=== PATIENT | male | born 1995 | race Caucasian/White ===

== ENCOUNTER 2018-07-23 13:25 | Emergency (ER) | payer SELFPAY ==
[~2018-07-23] VITALS: Ht 177.8 cm; Wt 68.0 kg
--- NOTE | 2018-07-23 14:00 | Emergency Room Report ---
History of Present Illness General Chief Complaint: Earache Source: Patient Present Illness HPI 22-year-old male with no significant past medical history here complaining of 2 days of right ear pain. Patient reports that he tried to get the ear wax out of his ear and putting a lot of fluid in his ear. Discharge from his ear, fever , chills, and all other URI symptoms. Patient denies neck pain and pain over the mastoid process process. Patient is rating the pain intermittent and 4 out of 10 and has not taken any medication for pain. Denies numbness or tingling in his right side effects. Allergies: Coded Allergies: No Known Allergies (Unverified , 07/23/18) Patient History Past Surgical History: unable to obtain Pertinent Family History: none Immunizations: UTD Reviewed Nursing Documentation: PMH: Agreed; PSxH: Agreed Nursing Documentation-PMH Past Medical History: No Stated History Review of Systems All Other Systems: negative except mentioned in HPI Physical Exam Vital Signs Date Time Temp Pulse Resp B/P (MAP) Pulse Ox O2 Delivery O2 Flow Rate FiO2 07/23/18 13:44 98.2 71 17 118/76 99 Room Air Sp02 EP Interpretation: reviewed, normal General Appearance: normal inspection, well appearing, no apparent distress Head: normocephalic, atraumatic Eyes: bilateral eye normal inspection, bilateral eye PERRL ENT: hearing grossly normal, normal pharynx, no angioedema, other - Pierz impaction in right ear canal, mild erythema of external ear canal on the right ear right TM not visible no pain or pressure by palpation of tragus or pinna Neck: normal inspection, full range of motion, supple Respiratory: normal inspection, lungs clear, no rhonchi, no wheezing Gastrointestinal: normal inspection, non tender Neurologic: normal inspection, alert, oriented x3 Psychiatric: normal inspection, judgement/insight normal Skin: normal inspection, normal color, no rash, normal turgor Lymphatic: normal inspection, no adenopathy, axilla node tender (R) Medical Decision Making PA Attestation all diagnosis and treatment plans are reviewed and discussed my supervising physician Dr. Wharton Diagnostic Impression: Primary Impression: Otitis media Additional Impression: Cerumen impaction ER Course 22-year-old male with no significant past medical history here complaining of 2 days of right ear pain. Patient reports that he tried to get the ear wax out of his ear and putting a lot of fluid in his ear. Discharge from his ear, fever , chills, and all other URI symptoms. Patient denies neck pain and pain over the mastoid process process. Patient is rating the pain intermittent and 4 out of 10 and has not taken any medication for pain. Denies numbness or tingling in his right side effects. Ddx considered but are not limited to otitis media , otitis externa, cerumen impaction, mastoiditis Vital signs: are WNL, pt. is afebrile H&PE are most consistent with [place] media ORDERS: Augmentin, naproxen ED INTERVENTIONS: None required at this time. DISCHARGE: At this time pt. is stable for d/c to home. Will provide printed patient care instructions, and any necessary prescriptions. Care plan and follow up instructions have been discussed with the patient prior to discharge. Last Vital Signs Date Time Temp Pulse Resp B/P (MAP) Pulse Ox O2 Delivery O2 Flow Rate FiO2 07/23/18 13:44 98.2 71 17 118/76 99 Room Air Disposition: HOME, SELF-CARE Condition: Stable Scripts Ibuprofen* (MOTRIN*) 600 Mg Tablet 600 MG ORAL BID, #20 TAB 0 Refills Prov: Bang Escobar 07/23/18 Amoxicillin/Potassium Clav 875-125* (AUGMENTIN 875-125 TABLET*) 1 Each Tablet 1 TAB ORAL TWICE A DAY for 10 Days, #20 TAB Prov: Bang Escobar 07/23/18 Patient Instructions: Cerumen Impaction, Otitis Media, Adult Additional Instructions: is medication as directed, avoid using Q-tip to clean the ER as he may push that back surgery pain and exacerbated infection. Once infection has been resolved C either ear nose throat doctor or go to an urgent care for proper ear lavage. Bang Escobar Jul 23, 2018 14:00
[2018-07-23] MEDS ORDERED: IBUPROFEN600 MG ORAL (14:01)
[2018-07-23] MEDS ORDERED: AUGMENTIN 875-1 EAC1 ORAL (14:01)
[2018-07-23 14:02] VITALS: BP 118/76
--- NOTE | 2018-07-23 14:02 | NUR ---
ED Nurse Note:pt. came with c/o right earache for several days
[2018-07-23 14:07] VITALS: BP 118/76
--- NOTE | 2018-07-23 14:08 | NUR ---
ED Nurse Note:pt. recevied d/c instructions with prescriptions and left ER with steady gait
== END 2018-07-23 14:21 | disposition home or self-care (01) ==
LOC: EMR 13:55
DX: H66.91 Otitis media, unspecified, right ear (principal); H61.21 Impacted cerumen, right ear
CPT/HCPCS: 99282